=== PATIENT | male | born 1965 | race Caucasian/White ===

== ENCOUNTER 2016-11-21 12:50 | Day surgery (SDC) | payer OTHER ==
[~2016-11-21] VITALS: Ht 162.6 cm; Wt 81.6 kg
[~2016-11-21 12:50] MED LIST: ASPIR 8181 M1 PO; CILOSTAZOL100 MG PO; ENDOCET 5-3251 EACH PO; IRON325 MG PO; LIPITOR40 MG PO; ULTRAM50 MG PO
[2016-11-21 13:45] LABS: MCHC 34.5 G/DL (30.0-36.0); MEAN PLAT.VOLUME 10.5 uM^3 (9.0-12.4); PLATELET COUNT 235 K/uL (156-360); RBC DIS.WIDTH-CV 12.1 % (11.8-14.6); RBC DIS.WIDTH-SD 39.7 % (39-53); RED BLOOD COUNT 5.22 M/uL (4.00-5.50); WHITE BLOOD COUNT 8.6 K/uL (4.1-10.2)
[2016-11-21 14:12] LABS: ANION GAP 12 MEQ/L (2-14); CHLORIDE 103 MEQ/L (99-109); GFR ESTIMATE (CALCULATED) > 59 mL/min/; GLUCOSE 88 mg/dL (70-99); POTASSIUM 3.6 MEQ/L (3.7-5.4); SAMPLE HEMOLYSIS CHECK 0; SAMPLE ICTERIC CHECK 0; SAMPLE LIPEMIA CHECK 0; SODIUM 138 MEQ/L (136-147); UREA NITROGEN (BUN) 12 mg/dL (9-23)
[2016-11-21 14:13] VITALS: BP 136/75
[2016-11-21 19:45] VITALS: BP 142/68
[2016-11-21 20:45] VITALS: BP 117/70
[2016-11-21 22:10] VITALS: BP 119/69
[2016-11-21 22:20] VITALS: BP 120/60
== END 2016-11-21 19:45 | disposition home or self-care (01) ==
LOC: 2SOUTH 12:50 → SDC 12:50 → EDSTATUS 18:47 → SDC 19:45
PROVIDERS: Surgery
DX: T82.868A Thrombosis due to vascular prosthetic devices, implants and grafts, initial encounter (principal); Z87.891 Personal history of nicotine dependence; E78.00 Pure hypercholesterolemia, unspecified; I73.9 Peripheral vascular disease, unspecified; Z79.82 Long term (current) use of aspirin
CPT/HCPCS: 80048; 85027; 86900; 86901; 93005; C1725; C1894; C2628; J0690; J1100; J1170; J1644; J2250; J2405; J3010